=== PATIENT | male | born 1970 | race Two or more races ===

== ENCOUNTER 2025-05-24 10:22 | Outpatient (OUT) | payer SELFPAY ==
--- OUTSIDE RECORDS SUMMARY | 2025-05-20 11:00 | XMS_ITS ---
Author Organization The [facility] in [place] Address [address] [place] [address] Care Team Providers Care Shell Worker Name Role Phone David Walters Primary Care Provider Allergies No Known Allergies REASON FOR VISIT New patient- has not seen a dr in over 25 years no meds Social History Tobacco Use: Social History Observation Description Date Details (start date - stop date) Current Smoker NA - NA Tobacco Control (Standard) Question Answer Notes Tobacco use: Current smoker How often do you smoke cigarettes?Some days, but not every dayHow many cigarettes a day do you smoke?5 or lessAUDIT-C (Standard) Question Answer Notes Did you have a drink containing alcohol in the p ast year? Yes How often did you have a drink containing alcohol in the past year?Monthly or less (1 point)How many drinks did you have on a typical day when you were drinking in the past year?3 or 4 drinks (1 point)How often did you have six or more drinks on one occasion in the past year?2 to 3 times per week (3 points) [id number] Problems Problem Type SNOMED Code ICD Code Onset Dates Problem Status W/U Status Risk Notes Problem Well adult (772448990) Well adult (Z00.00 ) Activeconfirmed Vital Signs Blood pressure systolic 130 mm Hg 05/20/20 25 Blood pressure diastolic 80 mm Hg 025 Height 72 in 05/20/2025 Weight 235 lbs 05/20/2025 BMI 31.87 kg/m2 05/20/2025 Encounters Encounter Location Date Provider Diagnosis [facility] [address] [place] [address] 05/20/2025 David Walters Well adult Z00.0 0 Assessments Encounter Date Diagnosis (ICD Code) Assessment Notes Treatment Notes Treatment Clinical Notes Section Notes 05/20/2025 Well adult (ICD-10 - Z00.00) Plan Of Treatment Pending Test Test Name Order Date HEMOGLOBIN A1C (GLYCO) 05/20/2025 INSULIN, TOTAL 05/20/2025 LIPID PANEL (CHOL/TRIG/HDL/LDL) 05/20/20 25 URIC ACID 05/20/2025 STOOL OCCULT BLOOD 05/20/2025 THYROID PANEL (T4/TSH/FREE T3) PSA, SCREENING 05/20/2025 CMP (COMP MET SEO) w/eGFR CKD-EPI 2024 CBC WITH DIFF 05/20/2025 Progress Notes * Thuan GAMEZinDOB:1970 (54 yo M)Acc No.[id number]:05/20/2025 New Patient Patient: Zachary Hank SORENSEN :?Cr aWlters ([facility]), MDDOB:1970???Age: 54 Y???Sex:MaleDate:05/20/2025Phone:[phone]:[address], [place]Fwaeg In:03:53 PM ESTCheck Out:05:02 PM EST Subjective: * Chief Complaints: * N ew patient- has not seen a dr in over 25 years no meds * HPI: ???General:? WEll adult not seen Dr in 25 years. ???Depression Screening:?PHQ-9?Little interest or pleasure in doing things Not at all ?Feeling down, depressed, or hopeless?Not at all ?Trouble falling or staying asleep, or sleeping too much?Not at all ?Feeling tired or having little energy?Not at all ?Poor appetite or overeating?Not at all ?Feeling bad about yourself or that you are a failure, or have let yourself or your family down?Not at all ?Trouble concentrating on things, such as reading the newspaper or watching television?Not at all ?Moving or speaking so slowly that other people could have noticed; or the opposite, being so fidgety or restless that you have been moving arounda lot more than usual?Not at all ?Thoughts that you would be better off orof hurting yourself in some way?Not at all ?Total Score?0 * ROS: ???EENT:?hearing changes?denies.?visual changes?denies. non-healing mouth sores?denies.?swollen glands or neck lumps?denies.?hoarseness?denies.?sore throat?denies.?difficulty swallowing?denies.?nose bleeds?denies.?nasal congestion?denies.?ear ache?denies.?ear discharge denies.?ringing in ears?denies.?light sensitivity?denies.?eye pain?denies.?blurring?denies.?eye irritation?denies.?double vision?denies. vision loss?denies.?General/Constitutional:?Sweats:?Denies.?Fatigue?denies.?Sleep proble ms?denies.?Anorexia?denies.?Malaise?denies.?Weight loss?denies. Fatigue or Weakness?denies.?Fever or Chills?denies.?Cardiovascular:?Shortness of Breath w/lying flat?denies.?Lightheadedne ss/dizziness?denies.?Chest tightness/ heavy pressure?denies.?Swelling of legs, a nkles, or feet?denies.?Waking up with shortness of breath?denies.?Chest pain&#16 0;denies.?Palpitations?denies.?Weight gain?denies.?Respiratory:?Chronic or frequent cough?denies.?Coughing up blood&#1 60;denies.?Difficulty breathing?denies.?Productive cough?denies.?Snoring&#1 60;denies.?Shortness of breath that awakens from sleep (PND)?denies.?Chest pain? denies.?Sputum production?denies.?Wheezing?denies.?Musculoskeletal:?Joint pain?denies.?Joint Fluid?denies.?Backpain?denies.?Knee pain?denies.?Neck pain?denies.?Joint Stiffness?denies.?Muscle cramps?denies.?Weakness of muscles?denies.?Arthritis?denies.?Muscle aches?denies.?Pain in shoulder(s)?denies.?Swollen joints?denies.? * Active Problem List Z00.00 Well adult Modified On:05/20/2025W/U Status:confirmed * Medical History: * Surgical History: N o Surgical History documented. * Hospitalization/Major Diagno stic Procedure: N o Hospitalization History. * Family History: F ather: alive. M other: alive. B rother(s): alive. 1 brother(s) . . * Social History: ???Tobacco Use:?Tobacco Control (Standard)?Tobacco use:?Current smoker ?How often do you smoke cigarettes??Some days, but not every day ?How many cigarettes a day do you smoke??5 or less ???Drug/Alcohol:?AUDIT-C (Standard)?Did you have a drink containing alcohol in the past year??Yes ?How often did you have a drink containing alcohol in the past year?? Monthly or less (1 point) ?How many drinks did you have on a typical daywhen you were drinking in the past year??3 or 4 drinks (1 point) ?How often did you have six or more drinks on one occasion in the past year??2 to 3 times per week (3 points) ?Points?5 ?Interpretation?Positive * Medications: N one * Allergies: N .K.D.A.no[Allergies Verified] Objective: * Vitals: W t:235lbs, Ht: 72 in, BP:130/80mm Hg, BMI:31.87Index, Ht-cm: 182.88 cm, Wt-k.6 kg. * Examination: ???Physical Exam: ?GENERAL:?well developed, well nourished, in no acute distress.?HEAD:?normocephalic/atraumatic.?EYES:?pupils equal, round and reactive to light, conjunctivae and sclerae normal.?EARS:?no deformity or lesion of external ear, canals and TM appear normal bilaterally, TM's intact, not inflamed with normal light reflex, hearing grossly normal to conversational speech.?NOSE:?no deformity, discharge, inflammation, or lesions. ?MOUTH:?mucous membranes moist, normal oropharynx and posterior pharynx without lesions or exudates, tongue normal, dentition normal.?NECK:?neck supple, no masses or palpable cervical nodes, trachea midline, thyroid without nodules, masses, tenderness, or enlargement.?CHEST:?no chest wall deformity, no chest wall tenderness. ?LUNGS:?normal respiratory effort and clear to auscultation, no wheezes, rales, or rhonchi, good air exchange.?CARDIO:?regular rate and rhythm, normal S1 and S2, nor murmur, rub, or gallop.?PULSES:?normal capillary refill.?ABDOMEN:?soft, non-distended, non-tender, no masses.?MUSCULOSKELETAL:?no deformity or scoliosis noted, normal range of motion, joints normal, no erythema, edema, effusion, or ecchymosis.?EXTREMITY:?no clubbing, cyanosis, edema, or deformity withnormal ROM in both upper and lower bilateral extremities.?NEUROLOGIC:?grossly normal.?SKIN:?no rashes, ulcerations, or suspicious lesions.?LYMPH NODES:?no cervical adenopathy, nodes normal.?MENTAL STATUS:?alert and oriented x3, normal mood and affect.? Assessment: * Assessment: 1.?Well adult - Z00.00 (Primary)??? Plan: * Treatment: ?LAB: HEMOGLOBIN A1C (GLYCO) ?LAB: INSULIN, TOTAL ?LAB: LIPID PANEL (CHOL/TRIG/HDL/LDL) ?LAB: URIC ACID ?LAB: STOOL OCCULT BLOOD ?LAB: THYROID PANEL (T4/TSH/FREE T3) ?LAB: PSA, SCREENING ?LAB: CMP (COMP MET SEO) w/eGFR CKD-EPI ?LAB: CBC WITH DIFF * Procedure Codes: 3 079F DIAST BP 80-89 MM [id number] SYST BP GE 130 - 139MM HG * Preventive Medicine: ??Screenings/Counseling:?BMI ACTION PLAN?Above Normal BMI Follow-up?Dietary management education, guidance, and counseling * * Sign off status: CompletedVisit Status:?CHK (Check Out) true * Provider: Andres Walters ([facility])MD Date: 1 07/20/2024 Generated for Printing/Faxing/eTransmitting on:?05/24/2025 10:29 AM EST History and Physical Notes * HPI (History of Present Illness) CategorySub-CategoryDetailNotesCategory NotesDepression ScreeningPHQ-9Little interest or pleasure in doing things: Not at allFeeling down, depressed, or hopeless: Not at allTrouble falling or staying asleep, or sleeping too much: Not at allFeeling tired or having little energy: Not at allPoor appetite or overeating: Not at allFeeling bad about yourself or that you are a failure, or have let yourself or your family down: Notat allTrouble concentrating on things, such as reading the newspaper or watching television: Not at allMoving or speaking so slowly that other people could have noticed; or the opposite, being so fidgety or restless that you have been moving around a lot more than usual: Not at allThoughts that you would be better off or of hurting yourself in some way: Not at allTotal Score: 0General WEll adult not seen Dr in 25 years Examination CategorySub-CategoryDetailNotesCategory NotesPhysical ExamGENERAL:well developed, well nourished, in no acute distressHEAD:normocephalic/atraumatic EYES:pupils equal, round and reactive to light, conjunctivae and sclerae normal EARS:no deformity or lesion of external ear, canals and TM appear normal bilaterally, TM's intact, not inflamed with normal light reflex, hearing grossly normal to conversational speechNOSE:no deformity, discharge, inflammation, or lesionsMOUTH:mucous membranes moist, normal oropharynx and posterior pharynx without lesions or exudates, tonguenormal, dentition normalNECK:neck supple, no masses or palpable cervical nodes, trachea midline, thyroid without nodules, masses, tenderness, or enlargementCHEST:no chest wall deformity, no chest wall tendernessLUNGS:normal respiratory effort and clear to auscultation, no wheezes, rales, or rhonchi, good air exchangeCARDIO:regular rate and rhythm, normal S1 and S2, nor murmur, rub, or gallopPULSES:normal capillary refillABDOMEN:soft, non-distended, non-tender, no massesRECTAL:MUSCULOSKELETAL:no deformity or scoliosis noted, normal range of motion, joints normal, no erythema, edema, effusion, or ecchymosisEXTREMITY:no clubbing, cyanosis, edema, or deformity with normal ROM in both upper and lower bilateral extremitiesNEUROLOGIC:grossly normalSKIN:no rashes, ulcerations, or suspicious lesionsLYMPH NODES:no cervical adenopathy, nodes normalMENTAL STATUS:alert and oriented x3, normal mood and affect
--- OUTSIDE RECORDS SUMMARY | 2025-05-24 10:29 | XMS_ITS | Patient Health Record ---
Author Organization The [facility] in [place] Address [address] [place] [address] Care Team Providers Care Quality Control Representative Name Role Phone David Walters Primary Care Provider Allergies No Known Allergies Reason For Referral No Information Social History Tobacco Use: Social History Observation [...] to 3 times per week (3 points) [id number] Problems Problem Type SNOMED Code ICD Code Onset Dates Problem Status W/U Status Risk Notes Problem Well adult (473812117) Well adult (Z00.00 ) Activeconfirmed Vital Signs Blood pressure diastolic 80 mm Hg 05/20/2025 Tmpvyv87 in05/20/2025lood pressure wtqijmfb101 mm Hg05/20/20259056Cgytyh914 lbs 05/20/2025BMI31.87 kg/m205/20/2025 Encounters Encounter Location Date Provider Diagnosis [facility] [address] [place] [address] 05/20/2025 David Jeremynaman Well adult Z00.0 0 Assessments Encounter Date Diagnosis (ICD Code) Assessment Notes Treatment Notes Treatment Clinical Notes Section Notes 05/20/2025 Well adult (ICD-10 - Z00.00) Plan Of Treatment Pending Test Test Name Order Date HEMOGLOBIN A1C (GLYCO) 05/20/2025 INSULIN, TOTAL 05/20/2025 LIPID PANEL (CHOL/TRIG/HDL/LDL) 05/20/20 25 URIC ACID 05/20/2025 STOOL OCCULT BLOOD 05/20/2025 THYROID PANEL (T4/TSH/FREE T3) 5 PSA, SCREENING 05/20/2025 CMP (COMP MET SEO) w/eGFR CKD-EPI 2024 CBC WITH DIFF 05/20/2025 Insurance Providers Payer Name Payer Address Payer Phone Subscriber Number Group Number Insured Name Patient Relationship to Insured Coverage Start Date Coverage End Date [employer] PPO PLUS LOCAL PLAN [address] [place] [address] [id number] Amisha Gamez - patient is the insured
[2025-05-24 11:14] LABS: Hematocrit 55.0 % (42.0-54.0); Hemoglobin 18.4 g/dL (14.0-18.0); Immature Granulocytes Abs Auto 0.03 10^3/uL (0.00-0.03); Immature Granulocytes Pct Auto 0.3 % (0.0-0.5); Lymphocytes Absolute Auto 1.8 10^3/uL (1.2-3.8); Mean Corpuscular HGB Conc 33.5 g/dL (29.9-35.2); Mean Corpuscular Hemoglobin 29.8 pg (25.9-34.0); Mean Corpuscular Volume 89.0 fL (80.0-94.0); Platelet Count 280 10^3/uL (150-450); Red Blood Count 6.18 10^6/uL (4.70-6.10); White Blood Count 10.2 10^3/uL (4.0-11.0)
[2025-05-24 11:47] LABS: Alanine Aminotransferase 48 U/L (16-63); Albumin Globulin Ratio 1.2; Albumin Level 4.1 g/dL (3.4-5.0); Alkaline Phosphatase 91 U/L (46-116); Anion Gap 11.9; Aspartate Amino Transferase 19 U/L (15-37); Blood Urea Nitrogen 17.0 mg/dL (7.0-18.0); Calcium 9.1 mg/dL (8.5-10.1); Carbon Dioxide 30.1 mmol/L (21.0-32.0); Chloride 105 mmol/L (98-107); Cholesterol 249 mg/dL (<=200); Estimated GFR (African America >60 (>=60 mL/min/1.73m^2); Estimated GFR (Non-African Ame 57 (>=60 mL/min/1.73m^2); Free T3 2.51 pg/mL (2.18-3.98); Globulin 3.3 g/dL; Glucose 131 mg/dL (74-106); HDL Cholesterol 44 mg/dL (40-60); Potassium 4.0 mmol/L (3.5-5.1); Sodium 143 mmol/L (136-145); Thyroid Stimulating Hormone 1.599 uIU/mL (0.358-3.740); Total Protein 7.4 g/dL (6.4-8.2); Triglycerides 230 mg/dL (<=150); Uric Acid 6.5 mg/dL (3.5-7.2); VLDL CHOLESTEROL 46.0 mg/dL
== END 2025-05-24 10:23 | disposition home or self-care (01) ==
PROVIDERS: PCP Family Medicine; Visit Provider Family Medicine
DX: Z00.00 Encounter for general adult medical examination without abnormal findings (principal); Z12.5 Encounter for screening for malignant neoplasm of prostate
CPT/HCPCS: 36415; 80053; 80061; 83036; 83525; 84436; 84443; 84481; 84550; 85025; G0103